=== PATIENT | male | born 1950 | race Caucasian/White ===

== ENCOUNTER 2018-10-25 09:50 | Emergency (ER) | payer OTHER ==
--- NOTE | 2018-10-25 10:00 | EDPHY ---
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 He awoke at 8:00 a.m. with a rapid heart rate, typical of prior episodes of SVT. He tried various maneuvers, without relief. On EMS arrival, heart rate was 220. Adenosine 12 mg IV given after which he converted to normal sinus rhythm. He is currently asymptomatic. He typically has 1-2 episodes of SVT a year and usually the SVT resolves without medical treatment. He does not have a research consultant. REVIEW OF SYSTEMS: complete 10 point ROS reviewed and is negative except for the noted elements in the HPI - Social History Alcohol Use: Sober Drug Use: None - Physical Exam Exam: General Appearance: Alert, pleasant Eyes: Pupils equal and round, no conjunctival pallor or injection ENT, Mouth: Mucous membranes moist Neck: Normal inspection Respiratory: Lungs are clear to auscultation Cardiovascular: Regular tachycardia, heart rate 105 Gastrointestinal: Abdomen is soft and nontender Neurological: A&O, nonfocal exam Skin: Warm and dry, no rash Extremities: Nontender, no pedal edema Psychiatric: Mood and affect normal Constitutional: Initial Vital Signs Temperature (C) 36.9 C 10/25/18 10:04 Heart Rate 104 H 10/25/18 10:04 Respiratory Rate 18 10/25/18 10:04 Blood Pressure 155/107 H 10/25/18 10:04 O2 Sat (%) 92 10/25/18 10:04 O2 Delivery Mode Room Air O2 (L/minute) 2 Allergies/Adverse Reactions: No Known Drug Allergies Allergy (Verified 10/25/18 10:16) Home Medications: Medication Instructions Recorded Amlodipine Besylate 10/25/18 Lisinopril 10/25/18 Mirtazapine 10/25/18 Prilosec 10/25/18 Simvastatin 10/25/18 Sumatriptan 10/25/18 Medical Decision Making - Diagnostics EKG Interpretation: EKG interpreted by me reveals sinus tachycardia, rate 102, borderline increased QT interval. Interpretation: Abnormal EKG ED Course/Re-evaluation: This patient presents after an episode of SVT. He remained in a sinus rhythm throughout his emergency department stay. Electrolytes are unremarkable. I strongly encouraged him to follow up with Cardiology in the office. Warning signs discussed. Differential Diagnosis: Includes though not limited to atrial fibrillation, atrial flutter, ventricular dysrhythmia - Data Points Laboratory Results: Laboratory Results 10/25/18 10:00 10/25/18 10:00 Point of Care Test Results: Chemistry 10/25/18 10:02 POC Troponin I 0.01 ng/mL ng/mL (0.00-0.08) Departure - Departure Disposition: Home, Routine, Self-Care Clinical Impression: Supraventricular tachycardia Condition: Good Instructions: Supraventricular Tachycardia (ED) Referrals: Олег Jay MD [Medical Doctor] - As per Instructions (Call to make an appointment.)
[2018-10-25 10:11] LABS: PLATELET COUNT 263 10^3/uL (150-400)
[2018-10-25 11:08] VITALS: BP 143/117
--- NOTE | 2018-10-25 15:39 | CPEKG ---
Test Reason : OPEN Blood Pressure : / mmHG Vent. Rate : 102 BPM Atrial Rate : 102 BPM P-R Int : 144 ms QRS Dur : 100 ms QT Int : 371 ms P-R-T Axes : 043 016 004 degrees QTc Int : 484 ms Sinus tachycardia Borderline prolonged QT interval Confirmed by Kat White ([id number]) on 10/25/2018 3:39:30 PM Referred By: Confirmed By:Kat White
== END 2018-10-25 11:08 | disposition home or self-care (01) ==
LOC: EDUNIT#
DX: I47.1 Supraventricular tachycardia (principal)
CPT/HCPCS: 84484-ER

== ENCOUNTER → 2018-11-05 | Outpatient (CLI) | payer OTHER | LOC: BHFA 11:30 | PROVIDERS: ATTEND Internal Medicine Cardiovascular Disease | DX: I45.6 Pre-excitation syndrome (principal); I10 Essential (primary) hypertension; I47.1 Supraventricular tachycardia ==